=== PATIENT | female | born 1995 | race Caucasian/White ===

== ENCOUNTER 2018-08-11 11:06 | Emergency (ER) | payer OTHER ==
[2018-08-11 11:25] VITALS: BP 98/65; PULSE 100; TEMP 98.5; BMI 22.2
--- NOTE | 2018-08-11 11:48 | PDOC ---
History of Present Illness - General Chief Complaint: ,Possible Stated Complaint: RIGHT LEG PAIN Time Seen by Provider: 08/11/18 11:39 History Source: Patient - History of Present Illness Timing/Duration: resolved prior to arrival Past History - Past Medical History Allergies/Adverse Reactions: Allergies Allergy/AdvReac Type Severity Reaction Status Date / Time No Known Allergies Allergy Verified 06/08/16 11:44 Home Medications: Ambulatory Orders Medroxyprogesterone Acetate [Depo-Provera -] 1 ml IM ASDIR 07/13/16 Azithromycin 2 tab PO ONCE #2 tab 09/23/16 Anemia: No Asthma: Yes (no asthma attacks for several yrs) Cancer: No Cardiac Disorders: No CVA: No COPD: No CHF: No Diabetes: No GI Disorders: No Disorders: No HTN: No Hypercholesterolemia: No Liver Disease: No Seizures: No Thyroid Disease: No - Suicide/Smoking/Psychosocial Hx Smoking History: Never smoked Hx Alcohol Use: No Drug/Substance Use Hx: No Substance Use Type: Cocaine, Marijuana Hx Substance Use Treatment: Yes (rehab, na) Review of Systems - Review of Systems Constitutional: No: Chills, Fever ABD/GI: No: Nausea, Vomiting, Abdominal cramping : No: Burning, Dysuria, Discharge, Flank Pain, Hematuria *Physical Exam - Vital Signs Last Vital Signs Temp Pulse Resp BP Pulse Ox 98.5 F 100 H 20 98/65 99 08/11/18 11:21 08/11/18 11:21 08/11/18 11:21 08/11/18 11:21 08/11/18 11:21 - Physical Exam General Appearance: Yes: Appropriately Dressed. No: Apparent Distress HEENT: positive: Normal Voice Neck: positive: Supple Respiratory/Chest: negative: Respiratory Distress Gastrointestinal/Abdominal: positive: Soft. negative: Tender Lymphatic: negative: Adenopathy Integumentary: positive: Dry, Warm Neurologic: positive: Fully Oriented, Alert, Normal Mood/Affect Moderate Sedation - Procedure Monitoring Vital Signs: Procedure Monitoring Vital Signs Temperature 98.5 F 08/11/18 11:21 Pulse Rate 100 H 08/11/18 11:21 Respiratory Rate 20 08/11/18 11:21 Blood Pressure 98/65 08/11/18 11:21 O2 Sat by Pulse Oximetry (%) 99 08/11/18 11:21 Medical Decision Making - Medical Decision Making 08/11/18 11:42 22 yo F, , ~13 weeks w/ US last week revealing +IUP w/ cardiac activity, no issues w/ preg so far, here to be evaluated for "a bump" that she noticed to R lower abd 2 days ago that has since resolved. No abd pain, vag bleed, dysuria or n/v. Well-appearing and stable with unremarkable exam. Dc with reassurance and instructions to continue following up with her OB *DC/Admit/Observation/Transfer Diagnosis at time of Disposition: Abdominal wall swelling - Discharge Dispostion Disposition: HOME Condition at time of disposition: Good - Referrals Referrals: Alycia Liz MD [Primary Care Provider] - - Patient Instructions Additional Instructions: Please follow up with your OB for continued care - Post Discharge Activity
== END 2018-08-11 12:01 | disposition home or self-care (01) ==
LOC: JER 11:06
DX: O26.891 Other specified pregnancy related conditions, first trimester (principal); R19.00 Intra-abdominal and pelvic swelling, mass and lump, unspecified site; Z3A.13 13 weeks gestation of pregnancy
CPT/HCPCS: 99281-25

== ENCOUNTER 2018-12-02 06:36 | Emergency (ER) | payer OTHER ==
[2018-12-02 06:47] VITALS: BP 111/72; PULSE 88; TEMP 98.8; BMI 23.5
[2018-12-02] MEDS ORDERED: ACETAMINOPHEN 325 MG TABLET (FP) ONE ×2 (06:49→08:19)
--- NOTE | 2018-12-02 07:52 | PDOC ---
History of Present Illness - General Chief Complaint: Ear Problem Stated Complaint: R EAR PAIN 29 WEEKS Time Seen by Provider: 12/02/18 07:31 History Source: Patient Exam Limitations: No Limitations - History of Present Illness Initial Comments: 23 yo F history asthma, currently 29 WGA presenting with R ear pain for past few days, became severe this morning. She did not take anything for pain. She states she tries to get wax out of her ears when she's in the shower by using soap and water, but does not use Q-tips. She has an ENT appointment in 2 days. Denies fever. +R facial pain. No swelling. Past History - Past Medical History Allergies/Adverse Reactions: Allergies Allergy/AdvReac Type Severity Reaction Status Date / Time No Known Allergies Allergy Verified 12/02/18 06:46 Home Medications: Ambulatory Orders Amoxicillin - [Amoxicillin 500mg Capsule -] 500 mg PO BID #14 capsule 12/02/18 Prenat 115/Iron Fum/Folic/Dss [ 19 Tablet] 1 each PO DAILY 12/02/18 Anemia: No Asthma: Yes (no asthma attacks for several yrs) Cancer: No Cardiac Disorders: No CVA: No COPD: No CHF: No Diabetes: No GI Disorders: No Disorders: No HTN: No Hypercholesterolemia: No Liver Disease: No Seizures: No Thyroid Disease: No - Suicide/Smoking/Psychosocial Hx Smoking History: Never smoked Have you smoked in the past 12 months: No Information on smoking cessation initiated: No Hx Alcohol Use: No Drug/Substance Use Hx: No Substance Use Type: Cocaine, Marijuana Hx Substance Use Treatment: Yes (rehab, na) Review of Systems - Review of Systems Able to Perform ROS?: Yes Comments:: GENERAL/CONSTITUTIONAL: No fever or chills. No weakness. HEAD, EYES, EARS, NOSE AND THROAT: No change in vision. +R ear pain or discharge. No sore throat. MUSCULOSKELETAL: No joint or muscle swelling or pain. No neck or back pain. SKIN: No rash. NEUROLOGIC: No headache, vertigo, loss of consciousness, or change in strength/ sensation. ENDOCRINE: No increased thirst. No abnormal weight change. HEMATOLOGIC/LYMPHATIC: No anemia, easy bleeding, or history of blood clots. ALLERGIC/IMMUNOLOGIC: No hives or skin allergy. *Physical Exam - Vital Signs Last Vital Signs Temp Pulse Resp BP Pulse Ox 98.8 F 88 20 111/72 99 12/02/18 06:46 12/02/18 06:46 12/02/18 06:46 12/02/18 06:46 12/02/18 06:46 - Physical Exam Comments: GENERAL: Awake, alert, and fully oriented, in no acute distress HEAD: No signs of trauma EYES: PERRLA, EOMI, sclera anicteric, conjunctiva clear ENT: Auricles normal inspection, hearing grossly normal, nares patent, oropharynx clear without exudates. Moist mucosa. R TM partially obstructed by cerumen, TM is bulging with dark yellow effusion. NECK: Normal ROM, supple, no lymphadenopathy, JVD, or masses LUNGS: Breath sounds equal, clear to auscultation bilaterally. No wheezes, and no crackles NEUROLOGICAL: Cranial nerves II through XII grossly intact. Normal speech, normal gait. Motor and sensation intact SKIN: Warm, dry, normal turgor, no rashes or lesions noted. Medical Decision Making - Medical Decision Making 12/02/18 08:20 The majority of the cerumen was removed first with a small scoop, then with peroxide and warm water. This allowed for better visualization of the TM. Will give abx in light of the bulging and effusion, as well as her symptoms. She has appt with ENT and Major Account Representative within 48 hours. Stable for DC home. Tylenol as needed for pain. *DC/Admit/Observation/Transfer Diagnosis at time of Disposition: Otitis media Qualifiers: Otitis media type: unspecified Laterality: right Qualified Code(s): H66.91 - Otitis media, unspecified, right ear - Discharge Dispostion Disposition: HOME Condition at time of disposition: Stable Decision to Admit order: No - Prescriptions Prescriptions: Amoxicillin - [Amoxicillin 500mg Capsule -] 500 mg PO BID #14 capsule - Referrals Referrals: Alycia Liz MD [Primary Care Provider] - - Patient Instructions Printed Discharge Instructions: DI for Cerumen Impaction, Middle Ear Infection Additional Instructions: If you have ear wax clogging your ear, you can use a 50:50 mix of peroxide and WARM water and instill in your ear for 10-20 minutes. Repeat twice a day, this will eventually melt the wax. Follow up with ENT as scheduled. Take antibiotics as prescribed. - Post Discharge Activity
[2018-12-02] MEDS ORDERED: ACETAMINOPHEN 325 MG TABLET (FP) PO ONE (08:06)
== END 2018-12-02 08:41 | disposition home or self-care (01) ==
LOC: JER 06:36
DX: O26.893 Other specified pregnancy related conditions, third trimester (principal); Z3A.29 29 weeks gestation of pregnancy; H66.91 Otitis media, unspecified, right ear
CPT/HCPCS: 99281-25

== ENCOUNTER 2019-02-02 14:30 | Inpatient (IN) | payer SELFPAY, OTHER | END 2019-02-05 12:40 | disposition home or self-care (01) | LOC: JLDR 14:30 → J3W 02-03 06:08 ==

== ENCOUNTER 2021-03-18 09:59 | Emergency (ER) | payer OTHER ==
[2021-03-18 10:11] VITALS: BP 123/78; PULSE 88; TEMP 98.7; BMI 18.1
[2021-03-18] MEDS ORDERED: KETOROLAC TROMETHAMINE 30 MG/1 ML VIAL ONE (11:11)
[2021-03-18] MEDS ORDERED: PHENAZOPYRIDINE HCL 100 MG TABLET (FP) ONE (11:12)
[2021-03-18] MEDS ORDERED: IBUPROFEN 400 MG TABLET (FP) PO ONE ×2 (11:22→11:33)
[2021-03-18] MEDS ORDERED: METHOCARBAMOL 500 MG TABLET PO ONE (11:22)
[2021-03-18] MEDS ORDERED: METHOCARBAMOL 500 MG TABLET ONE (11:32)
[2021-03-18] MEDS ORDERED: IBUPROFEN 200 MG TABLET PO ONE (11:32)
== END 2021-03-18 12:00 | disposition home or self-care (01) ==
LOC: JER 09:59
DX: M62.838 Other muscle spasm (principal)
CPT/HCPCS: 71046-TC-FY; 99284-25

== ENCOUNTER 2021-06-23 14:03 | Emergency (ER) | payer OTHER ==
[2021-06-23 14:13] VITALS: BP 108/75; PULSE 83; TEMP 98
[2021-06-23 18:35] LABS: HCG,QUALITATIVE URINE Negative
[2021-06-23 18:36] LABS: EPI CELLS 8 /uL (0-25.1); HYALINE CASTS 1 /uL (0-3.1); URINE APPEARANCE CLEAR; URINE BACTERIA >9,000 /uL (0-1359); URINE BILIRUBIN NEGATIVE (NEGATIVE); URINE COLOR YELLOW; URINE GLUCOSE (UA) NEGATIVE (NEGATIVE); URINE KETONE NEGATIVE (NEGATIVE); URINE LEUK ESTERASE 2+ (NEGATIVE); URINE NITRITE NEGATIVE (NEGATIVE); URINE PROTEIN NEGATIVE (NEGATIVE); URINE RBC 1 /uL (0-23.9); URINE UROBILINOGEN 0.2 mg/dL (0.2-1.0); URINE WBC 127 /uL (0-25.8)
[2021-06-23 18:39] LABS: BASO % 0.4 % (0-2.0); EOS % 4.4 % (0-4.5); HEMATOCRIT 35.9 % (32.4-45.2); HEMOGLOBIN 11.8 GM/dL (10.7-15.3); LYMPH % 24.6 % (8-40); MCHC 32.9 g/dl (32.0-36.0); MEAN CELL VOLUME 85.2 fl (80-96); MEAN PLT VOLUME 8.5 fl (7.5-11.1); MONO % 10.2 % (3.8-10.2); NEUT % 60.4 % (42.8-82.8); PLATELET COUNT 279 10^3/uL (134-434); RBC 4.21 M/mm3 (3.60-5.2); RDW 13.3 % (11.6-15.6)
[2021-06-23] MEDS ORDERED: KETOROLAC TROMETHAMINE 15 MG/ML VIAL IVPUSH ONE (18:44)
[2021-06-23] MEDS ORDERED: SODIUM CHLORIDE 0.9% 500 ML INFUS.BAG IV ONE (18:45)
[2021-06-23] MEDS ORDERED: KETOROLAC TROMETHAMINE 15 MG/ML VIAL ONE (18:54)
[2021-06-23 18:58] LABS: ALBUMIN 4.1 g/dl (3.4-5.0); BLOOD UREA NITROGEN 7.9 mg/dL (7-18); CALCIUM 9.3 mg/dL (8.5-10.1)
[2021-06-23 19:01] LABS: CREATININE 0.4 mg/dL (0.55-1.3)
[2021-06-23 19:02] LABS: BILIRUBIN,TOTAL 0.7 mg/dL (0.2-1)
[2021-06-23 19:03] LABS: TOT PROT 7.3 g/dl (6.4-8.2)
[2021-06-23] MEDS ORDERED: CEFTRIAXONE 1 GM in DEXTROSE 5%-WATER - 100 ML IVPB ONE (20:29)
[2021-06-23] MEDS ORDERED: CEFTRIAXONE 1 GM/50 ML BAG ONE (20:41)
== END 2021-06-23 21:25 | disposition home or self-care (01) ==
LOC: JER 14:03
PROC: 3E03329 Introduction of Other Anti-infective into Peripheral Vein, Percutaneous Approach (ICD-10-PCS; principal; 2021-06-23)
PROC: 3E0333Z Introduction of Anti-inflammatory into Peripheral Vein, Percutaneous Approach (ICD-10-PCS; 2021-06-23)
DX: N39.0 Urinary tract infection, site not specified (principal); R10.31 Right lower quadrant pain; N10 Acute pyelonephritis
CPT/HCPCS: 36415; 74177-TC; 80053; 81003; 83690; 84703; 85025; 87491; 87591; 99285-25; Q9967

== ENCOUNTER 2022-07-15 00:43 | Emergency (ER) | payer OTHER ==
[2022-07-15 00:57] VITALS: TEMP 98.2; BMI 23.1
[2022-07-15 02:50] VITALS: BP 125/79; PULSE 106; RESP 18
[2022-07-15] MEDS ORDERED: ALBUTEROL SO4 2.5/IPRATROPIUM 0.5 INH SOL 3 ML VIAL.NEB. NEB SCH (04:15)
[2022-07-15 04:45] LABS: BASO % 0.4 % (0-2.0); EOS % 3.4 % (0-4.5); HEMATOCRIT 38.2 % (32.4-45.2); HEMOGLOBIN 12.7 GM/dL (10.7-15.3); LYMPH % 12.5 % (8-40); MCHC 33.4 g/dl (32.0-36.0); MEAN PLT VOLUME 8.2 fl (7.5-11.1); MONO % 8.1 % (3.8-10.2); NEUT % 75.6 % (42.8-82.8); PLATELET COUNT 260 10^3/uL (134-434); RBC 4.55 M/mm3 (3.60-5.2); RDW 13.3 % (11.6-15.6); WHITE BLOOD COUNT 11.2 K/mm3 (4.0-10.0)
[2022-07-15 05:09] LABS: ALBUMIN 4.2 g/dl (3.4-5.0); BLOOD UREA NITROGEN 11.4 mg/dL (7-18); CALCIUM 8.7 mg/dL (8.5-10.1)
[2022-07-15 05:12] LABS: CREATININE 0.5 mg/dL (0.55-1.3)
[2022-07-15 05:15] LABS: TOT PROT 7.5 g/dl (6.4-8.2)
== END 2022-07-15 06:50 | disposition home or self-care (01) ==
LOC: JER 00:43
PROC: 3E0F7GC Introduction of Other Therapeutic Substance into Respiratory Tract, Via Natural or Artificial Opening (ICD-10-PCS; principal; 2022-07-15)
DX: R05.1 Acute cough (principal); R06.02 Shortness of breath
CPT/HCPCS: 0241U-QW; 36415; 71046-TC-FY; 80053; 84703; 85025; 85379; 99284-25

== ENCOUNTER 2022-11-11 09:56 | Emergency (ER) | payer OTHER ==
[2022-11-11 10:20] VITALS: BP 125/80; PULSE 84; RESP 16; TEMP 98.5; BMI 23.5
[2022-11-11] MEDS ORDERED: FAMOTIDINE 20 MG/50 ML IVPB 20 MG/50 ML MG IVPB ONE ×2 (10:51→10:55)
[2022-11-11] MEDS ORDERED: ONDANSETRON 4 MG/2 ML VIAL IVPUSH ONE (10:51)
[2022-11-11] MEDS ORDERED: ONDANSETRON 4 MG/2 ML VIAL ONE (10:55)
[2022-11-11 11:32] LABS: POTASSIUM 3.4 mmol/L (3.5-5.1)
[2022-11-11 11:35] LABS: BASO % 0.3 % (0-2.0); EOS % 3.1 % (0-4.5); HEMATOCRIT 34.6 % (32.4-45.2); HEMOGLOBIN 11.7 GM/dL (10.7-15.3); LYMPH % 10.3 % (8-40); MCH 27.4 pg (25.7-33.7); MCHC 33.9 g/dl (32.0-36.0); MEAN CELL VOLUME 80.6 fl (80-96); MEAN PLT VOLUME 8.4 fl (7.5-11.1); MONO % 5.2 % (3.8-10.2); NEUT % 81.1 % (42.8-82.8); PLATELET COUNT 242 10^3/uL (134-434); RDW 13.2 % (11.6-15.6); WHITE BLOOD COUNT 9.3 K/mm3 (4.0-10.0)
[2022-11-11 11:46] LABS: ALBUMIN 3.6 g/dl (3.4-5.0); BILIRUBIN,TOTAL 0.5 mg/dL (0.2-1); BLOOD UREA NITROGEN 9.1 mg/dL (7-18); CALCIUM 9.1 mg/dL (8.5-10.1); CREATININE 0.4 mg/dL (0.55-1.3); TOT PROT 6.6 g/dl (6.4-8.2)
[2022-11-11 11:56] LABS: EPI CELLS 23 /uL (0-25.1); HYALINE CASTS 1 /uL (0-3.1); URINE APPEARANCE CLOUDY; URINE BACTERIA >9,000 /uL (0-1359); URINE BILIRUBIN NEGATIVE (NEGATIVE); URINE COLOR YELLOW; URINE GLUCOSE (UA) NEGATIVE (NEGATIVE); URINE KETONE NEGATIVE (NEGATIVE); URINE LEUK ESTERASE TRACE (NEGATIVE); URINE NITRITE NEGATIVE (NEGATIVE); URINE PROTEIN NEGATIVE (NEGATIVE); URINE RBC 22 /uL (0-23.9); URINE UROBILINOGEN 0.2 mg/dL (0.2-1.0); URINE WBC 56 /uL (0-25.8)
== END 2022-11-11 15:06 | disposition home or self-care (01) ==
LOC: JER 09:56
PROC: 3E033GC Introduction of Other Therapeutic Substance into Peripheral Vein, Percutaneous Approach (ICD-10-PCS; principal; 2022-11-11)
PROC: 3E033GC Introduction of Other Therapeutic Substance into Peripheral Vein, Percutaneous Approach (ICD-10-PCS; 2022-11-11)
DX: O26.891 Other specified pregnancy related conditions, first trimester (principal); R10.30 Lower abdominal pain, unspecified; O21.9 Vomiting of pregnancy, unspecified; R19.7 Diarrhea, unspecified; R14.0 Abdominal distension (gaseous); Z3A.13 13 weeks gestation of pregnancy
CPT/HCPCS: 36415; 76801-TC; 80053; 81003; 83690; 83735; 84702; 84703; 85025; 87086; 87186; 99284-25

== ENCOUNTER 2023-05-10 08:37 | Emergency (ER) | payer OTHER ==
[2023-05-10 08:56] VITALS: BP 110/77; PULSE 98; RESP 18; TEMP 97.6; BMI 22.3
[2023-05-10] MEDS ORDERED: IBUPROFEN 600 MG TABLET (FP) PO ONE ×2 (09:23→10:23)
== END 2023-05-10 11:17 | disposition home or self-care (01) ==
LOC: JER 08:37
DX: S20.212A Contusion of left front wall of thorax, initial encounter (principal); S00.532A Contusion of oral cavity, initial encounter; S80.211A Abrasion, right knee, initial encounter; S80.212A Abrasion, left knee, initial encounter; Y04.0XXA Assault by unarmed brawl or fight, initial encounter; Y92.9 Unspecified place or not applicable
CPT/HCPCS: 71045-TC-FY; 71101-TC-LT-FY; 99283-25

== ENCOUNTER 2023-06-07 10:07 | Emergency (ER) | payer OTHER ==
[2023-06-07] MEDS ORDERED: POTASSIUM CHLORIDE TABS 20 MEQ TABLET.ER (FP) PO ONE (10:15)
[2023-06-07 10:17] VITALS: RESP 18; BMI 23.3
[2023-06-07] MEDS ORDERED: SODIUM CHLORIDE 1,000 ML IV STA (11:14)
[2023-06-07] MEDS ORDERED: ACETAMINOPHEN 1000 MG/100 ML BAG IVPB ONE (11:16)
[2023-06-07] MEDS ORDERED: ACETAMINOPHEN INJECTION 100 ML IVPB ONE (11:29)
[2023-06-07 12:00] LABS: BASO % 0.6 % (0-2.0); EOS % 3.1 % (0-4.5); HEMATOCRIT 38.5 % (32.4-45.2); HEMOGLOBIN 12.3 GM/dL (10.7-15.3); LYMPH % 13.8 % (8-40); MCH 27.3 pg (25.7-33.7); MEAN CELL VOLUME 85.3 fl (80-96); MEAN PLT VOLUME 8.1 fl (7.5-11.1); NEUT % 74.5 % (42.8-82.8); PLATELET COUNT 218 10^3/uL (134-434); RBC 4.51 M/mm3 (3.60-5.2); RDW 14.1 % (11.6-15.6); WHITE BLOOD COUNT 7.8 K/mm3 (4.0-10.0)
[2023-06-07 12:07] LABS: HCG,QUALITATIVE URINE Negative
[2023-06-07 12:08] LABS: EPI CELLS 5 /uL (0-25.1); HYALINE CASTS 0 /uL (0-3.1); PH,URINE 6.5 (5.0-8.0); URINE APPEARANCE CLEAR; URINE BACTERIA >9,000 /uL (0-1359); URINE BILIRUBIN NEGATIVE (NEGATIVE); URINE COLOR YELLOW; URINE GLUCOSE (UA) NEGATIVE (NEGATIVE); URINE KETONE NEGATIVE (NEGATIVE); URINE LEUK ESTERASE NEGATIVE (NEGATIVE); URINE NITRITE NEGATIVE (NEGATIVE); URINE PROTEIN NEGATIVE (NEGATIVE); URINE RBC 20 /uL (0-23.9); URINE UROBILINOGEN 0.2 mg/dL (0.2-1.0); URINE WBC 7 /uL (0-25.8)
[2023-06-07 12:25] LABS: ALBUMIN 3.5 g/dl (3.4-5.0); BLOOD UREA NITROGEN 10.8 mg/dL (7-18); CALCIUM 8.9 mg/dL (8.5-10.1)
[2023-06-07 12:28] LABS: CREATININE 0.5 mg/dL (0.55-1.3)
[2023-06-07 12:30] LABS: BILIRUBIN,TOTAL 0.6 mg/dL (0.2-1); TOT PROT 6.7 g/dl (6.4-8.2)
[2023-06-07] MEDS ORDERED: CEFTRIAXONE 1 GM in DEXTROSE 5%-WATER - 100 ML IVPB ONE (12:40)
[2023-06-07] MEDS ORDERED: CEFTRIAXONE 1 GM/50 ML BAG ONE (13:03)
[2023-06-07 14:49] VITALS: BP 122/68; PULSE 80; TEMP 98
== END 2023-06-07 14:49 | disposition home or self-care (01) ==
LOC: JER 10:07
PROC: 3E03329 Introduction of Other Anti-infective into Peripheral Vein, Percutaneous Approach (ICD-10-PCS; principal; 2023-06-07)
PROC: 3E033NZ Introduction of Analgesics, Hypnotics, Sedatives into Peripheral Vein, Percutaneous Approach (ICD-10-PCS; 2023-06-07)
PROC: 3E0337Z Introduction of Electrolytic and Water Balance Substance into Peripheral Vein, Percutaneous Approach (ICD-10-PCS; 2023-06-07)
DX: R10.9 Unspecified abdominal pain (principal); N39.0 Urinary tract infection, site not specified
CPT/HCPCS: 36415; 74176-TC; 80053; 81003; 83690; 84703; 85025; 87086; 87186; 99284-25

== ENCOUNTER 2024-12-21 17:34 | Emergency (ER) | payer OTHER ==
[2024-12-21 17:43] VITALS: BP 121/82; PULSE 58; RESP 15; TEMP 98.6; BMI 23.6
[2024-12-21] MEDS ORDERED: ONDANSETRON 4 MG/2 ML VIAL ONE (18:34)
[2024-12-21] MEDS ORDERED: ACETAMINOPHEN INJECTION 100 ML ONE (18:34)
[2024-12-21] MEDS ORDERED: FAMOTIDINE 20 MG/50 ML IVPB 20 MG/50 ML MG IVPB ONE (18:34)
[2024-12-21 18:41] LABS: EPI CELLS 26 /uL (0-25.1); HYALINE CASTS 1 /uL (0-3.1); URINE APPEARANCE CLOUDY; URINE BACTERIA >9,000 /uL (0-1359); URINE BILIRUBIN NEGATIVE (NEGATIVE); URINE COLOR YELLOW; URINE GLUCOSE (UA) NEGATIVE (NEGATIVE); URINE KETONE NEGATIVE (NEGATIVE); URINE LEUK ESTERASE TRACE (NEGATIVE); URINE NITRITE POSITIVE (NEGATIVE); URINE PROTEIN TRACE (NEGATIVE); URINE RBC 74 /uL (0-23.9); URINE UROBILINOGEN 0.2 mg/dL (0.2-1.0); URINE WBC 49 /uL (0-25.8)
[2024-12-21] MEDS: ONDANSETRON 4 MG/2 ML VIAL IVPUSH ONE (18:45)
[2024-12-21] MEDS: FAMOTIDINE 20 MG/50 ML IVPB 20 MG/50 ML MG IVPB ONE (18:45)
[2024-12-21] MEDS: ACETAMINOPHEN 1000 MG/100 ML BAG IVPB ONE (18:45)
[2024-12-21] MEDS: SODIUM CHLORIDE 0.9% 500 ML INFUS.BAG IV ONE (18:46)
[2024-12-21 18:52] LABS: ABSOLUTE IMMATURE GRANULOCYTES 0.03 x10^3/uL (0.0-0.031); BASOPHILS # 0.06 x10^3/uL (0.01-0.08); EOSINOPHIL % 5.1 % (0.7-5.8); EOSINOPHILS # 0.52 x10^3/uL (0.04-0.36); MCHC 32.3 g/dl (32.2-35.5); MEAN CELL VOLUME 85.1 fl (79.4-94.8); MEAN PLT VOLUME 10.1 fl (9.4-12.3); MONOCYTE # 0.91 x10^3/uL (0.24-0.86); MONOCYTE % 9.0 % (4.7-12.5); RDW 12.7 % (12.1-16.5)
[2024-12-21 19:14] LABS: CO2 29.0 mmol/L (21-32); GLUCOSE,RANDOM 83.0 mg/dL (74-106)
[2024-12-21 19:17] LABS: CREATININE 0.7 mg/dL (0.55-1.3); SGOT/AST 12.0 U/L (15-37); SGPT/ALT 28.0 U/L (13-61)
[2024-12-21 19:19] LABS: TOT PROT 7.5 g/dl (6.4-8.2)
[2024-12-21 19:20] LABS: ALK PHOS 103.0 U/L (45-117)
[2024-12-21 20:05] LABS: HIV INTERPRETATION NEGATIVE (NEGATIVE)
[2024-12-21 20:06] LABS: HCV DIAGNOSTIC IN-HOUSE W/RFLX NON-REACTIVE (NONREACTIVE)
== END 2024-12-21 22:55 | disposition home or self-care (01) ==
LOC: JER 17:34
PROC: 3E033GC Introduction of Other Therapeutic Substance into Peripheral Vein, Percutaneous Approach (ICD-10-PCS; principal; 2024-12-21)
PROC: 3E033GC Introduction of Other Therapeutic Substance into Peripheral Vein, Percutaneous Approach (ICD-10-PCS; 2024-12-21)
PROC: 3E033NZ Introduction of Analgesics, Hypnotics, Sedatives into Peripheral Vein, Percutaneous Approach (ICD-10-PCS; 2024-12-21)
PROC: 3E02329 Introduction of Other Anti-infective into Muscle, Percutaneous Approach (ICD-10-PCS; 2024-12-21)
DX: N39.0 Urinary tract infection, site not specified (principal); R10.31 Right lower quadrant pain; R10.32 Left lower quadrant pain; R10.33 Periumbilical pain; R19.7 Diarrhea, unspecified; R11.0 Nausea; N89.8 Other specified noninflammatory disorders of vagina
CPT/HCPCS: 36415; 74177-TC; 76856-TC; 80053; 81003; 83690; 84703; 85025; 86803; 87081; 87086; 87110; 87389; 87491; 87591; 87661; 99285-25; Q9967